=== PATIENT | male | born 1980 | race Caucasian/White ===

== ENCOUNTER 2017-08-29 21:28 | Emergency (ER) | payer SELFPAY ==
[~2017-08-29] VITALS: Ht 160 cm; Wt 109.0 kg
[2017-08-29 21:34] VITALS: BP 144/94
== END 2017-08-29 22:32 | disposition left against medical advice (07) ==
LOC: EMS 21:29
DX: M79.89 Other specified soft tissue disorders (principal); Z53.21 Procedure and treatment not carried out due to patient leaving prior to being seen by health care provider